=== PATIENT | male | born 1940 | race Caucasian/White ===

== ENCOUNTER 2021-09-14 13:38 | Inpatient (IN) ==
[2021-09-14] MEDS ORDERED: 0.9 % Sodium Chloride 1,000 ML ONE (14:16)
[2021-09-14] MEDS ORDERED: 0.9 % Sodium Chloride 1,000 ML IVC SCH (14:30)
[2021-09-14 14:53] LABS: Basophils % 0.3 %; Hematocrit 33.4 % (37.5-50.1); Hemoglobin 10.6 g/dL (12.9-16.9); Immature Granulocytes % 1.3 % (0-4); Lymphocytes # 0.3 K/mcL (0.6-4.6); Lymphocytes % 4.3 %; Mean Corpuscular HGB Conc 31.7 g/dL (31.6-35.5); Mean Corpuscular Hemoglobin 28.8 pg (28.0-33.3); Mean Corpuscular Volume 90.8 fL (83.0-100.0); Mean Platelet Volume 11.2 fL (9.4-12.4); Monocytes # 0.3 K/mcL (0.0-1.3); Monocytes % 4.3 %; Neutrophils # 6.4 K/mcL (1.6-8.9); Platelet Count 123 K/mcL (140-400); Red Blood Count 3.68 M/mcL (4.19-5.50); Red Cell Distribution Width 13.7 % (11.5-14.5); Segmented Neutrophils % 89.8 %; White Blood Count 7.2 K/mcL (4.3-11.1)
[2021-09-14 15:40] LABS: Troponin I 1.17 ng/mL (< 0.04)
[2021-09-14 15:44] LABS: Alanine Aminotransferase 24 Units/L (7-52); Albumin < 1.5 g/dL (3.5-5.7); Alkaline Phosphatase 32 Units/L (34-104); Aspartate Amino Transferase 42 Units/L (13-39); BUN/Creatinine Ratio 47 (6-26); Bilirubin,Total 0.3 mg/dL (0.3-1.0); Blood Urea Nitrogen 113 mg/dL (8-23); Calcium < 4.0 mg/dL (8.6-10.3); Carbon Dioxide 10 mEq/L (23-29); Chloride 132 mEq/L (98-107); Creatine Kinase 1411 Units/L (30-223); Glucose 207 mg/dL (70-105); Osmolality,Calculated 362 (280-300); Sodium 155 mEq/L (136-145); Total Protein 2.7 g/dL (6.4-8.9); eGFR For African Americans 32 (> 60); eGFR For Non-African Americans 26 (> 60)
[2021-09-14] MEDS ORDERED: Ondansetron 4 MG/2 ML VIAL IVP ONE (16:02)
[2021-09-14] MEDS ORDERED: Morphine Sulfate 2 MG/ML SYRINGE IVP ONE (16:02)
[2021-09-14] MEDS ORDERED: *HR* Heparin 5,000 UNIT/ML VIAL IVP PRN ×2 (16:04)
[2021-09-14] MEDS ORDERED: *HR* Heparin 5,000 UNIT/ML VIAL IVP ONE (16:04)
[2021-09-14 16:45] LABS: Amorphous Sediment,Urine Few per hpf (None-Few); Bilirubin,Urine Small (Negative); Blood,Urine Trace (Negative); Clarity,Urine Turbid (Clear); Color,Urine Yellow (Yellow); Glucose,Urine (UA) 70 mg/dL (Normal); Ketones,Urine Trace mg/dL (Negative); Leukocyte Esterase,Urine Negative (Negative); Mucus,Urine Few per lpf (None-Few); Nitrite,Urine Negative (Negative); Protein,Urine Trace mg/dL (Neg-Trace); Specific Gravity,Urine 1.022 (1.010-1.025); Urobilinogen,Urine Normal (Normal); WBC,Urine 0-3 per hpf (0-3)
[2021-09-14] MEDS: Heparin 25,000UNIT/250ML 1/2NS 25,000 UNIT/250 ML IV.SOLN IVC SCH (17:30)
[2021-09-14] MEDS ORDERED: Albumin 25% 25gram/100mL 25 GM/100 ML IV.SOLN IVC SCH (18:15)
[2021-09-14] MEDS ORDERED: Acetaminophen 325 MG TABLET PO PRN (19:30)
[2021-09-14] MEDS ORDERED: Naloxone 0.4 MG/ML INJ IVP PRN (19:30)
[2021-09-14] MEDS ORDERED: Ondansetron 4 MG/2 ML VIAL IVP PRN (19:30)
[2021-09-14] MEDS: Calcium Gluconate 1gm/50mL 1 GM/50 ML BAG IVPB SCH ×2 (19:57→20:53)
[2021-09-14] MEDS ORDERED: Perflutren Lipid Microsphere 1.3 ML in 0.9 % Sodium Chloride 8.7 ML IVP PRN (21:37)
[2021-09-14] MEDS ORDERED: Ipratropium/Albuterol Neb 3 ML IH PRN (22:00)
[2021-09-15] MEDS: 0.9 % Sodium Chloride 1,000 ML IVC SCH ×3 (00:47→21:58)
[2021-09-15] MEDS: Doxycycline 100 MG in 0.9 % Sodium Chloride Mini Bag 100 ML IVPB SCH ×2 (00:47→08:29)
[2021-09-15] MEDS ORDERED: Calcium Gluconate 1gm/50mL 1 GM/50 ML BAG IVPB ONE ×2 (00:49→05:48)
[2021-09-15 00:55] LABS: Adenovirus Not Detected (Not Detect); Coronavirus 229E Not Detected (Not Detect); Coronavirus HKU1 Not Detected (Not Detect); Coronavirus NL63 Not Detected (Not Detect); Coronavirus OC43 Not Detected (Not Detect)
[2021-09-15 00:56] LABS: SARS-CoV-2 DETECTED (Not Detect)
[2021-09-15 00:57] LABS: Bordetella Pertussis Not Detected (Not Detect); Chlamydophila pneumoniae Not Detected (Not Detect); Human Metapneumovirus Not Detected (Not Detect); Human Rhinovirus/Enterovirus Not Detected (Not Detect); Influenza A Subtype 2009 H1 Not Detected (Not Detect); Influenza B Not Detected (Not Detect); Mycoplasma pneumoniae Not Detected (Not Detect); Parainfluenza Virus 1 Not Detected (Not Detect); Parainfluenza Virus 2 Not Detected (Not Detect); Parainfluenza Virus 3 Not Detected (Not Detect); Parainfluenza Virus 4 Not Detected (Not Detect); Respiratory Syncytial Virus Not Detected (Not Detect)
[2021-09-15] MEDS: cefTRIAXone 1,000 MG in 0.9 % Sodium Chloride Mini Bag 100 ML IVPB SCH ×2 (01:40→08:29)
[2021-09-15 04:30] LABS: Heparin anti-factor XA UFH 0.61 IU/mL (0.30-0.70); Prothrombin Time 22.6 Seconds (9.4-12.1)
[2021-09-15 04:35] LABS: Alanine Aminotransferase 65 Units/L (7-52); Albumin 3.1 g/dL (3.5-5.7); Albumin/Globulin Ratio 0.8 (1.1-2.2); Alkaline Phosphatase 89 Units/L (34-104); Aspartate Amino Transferase 120 Units/L (13-39); Bilirubin,Direct 0.4 mg/dL (0.0-0.2); Bilirubin,Indirect 0.4 mg/dL (0.0-1.0); Bilirubin,Total 0.8 mg/dL (0.3-1.0); Blood Urea Nitrogen > 130 mg/dL (8-23); Calcium 8.7 mg/dL (8.6-10.3); Carbon Dioxide 17 mEq/L (23-29); Chloride 115 mEq/L (98-107); Chol/HDL Ratio 8.1 (0-4.9); Cholesterol 137 mg/dL (< 200); Creatine Kinase 3942 Units/L (30-223); Globulin 3.8 g/dL (2.4-3.5); Glucose 262 mg/dL (70-105); HDL Cholesterol 17 mg/dL (40-59); LDL Cholesterol,Calculated 56 mg/dL (< 100); Magnesium 3.9 mg/dL (1.6-2.6); Phosphorous 8.6 mg/dL (2.7-4.5); Sodium 155 mEq/L (136-145); Thyroid Stimulating Hormone 2.792 mcIU/mL (0.340-5.600); Total Protein 6.9 g/dL (6.4-8.9); Triglycerides 319 mg/dL (< 150); eGFR For African Americans 12 (> 60); eGFR For Non-African Americans 10 (> 60)
[2021-09-15 04:37] LABS: Vitamin D 25 Hydroxy 38 ng/mL (30-80)
[2021-09-15 04:39] LABS: Folate 18.8 ng/mL (3.0-16.0)
[2021-09-15 04:51] LABS: Vitamin B12 > 1500 pg/mL (250-1100)
[2021-09-15] MEDS ORDERED: 0.9 % Sodium Chloride 500 ML IVC PRN (04:54)
[2021-09-15] MEDS ORDERED: 0.9 % Sodium Chloride 500 ML ONE (04:57)
[2021-09-15 06:13] LABS: ABG Base Excess -11 mEq/L (-2 to 3); ABG HCO3 12 mEq/L (21-27); ABG Oxygen Saturation 96 % (95-98); ABG PCO2 21 mmHg (35-45); ABG PH 7.38 pH Units (7.32-7.45); ABG PO2 84 mmHg (85-104); ABG TCO2 13 mEq/L (20-26)
[2021-09-15 06:51] LABS: Basophils # 0.1 K/mcL (0.0-0.2); Basophils % 0.5 %; Hematocrit 50.1 % (37.5-50.1); Immature Granulocytes % 2.5 % (0-4); Lymphocytes % 2.1 %; Mean Corpuscular HGB Conc 31.9 g/dL (31.6-35.5); Mean Corpuscular Hemoglobin 28.5 pg (28.0-33.3); Mean Corpuscular Volume 89.3 fL (83.0-100.0); Mean Platelet Volume 11.6 fL (9.4-12.4); Monocytes # 0.7 K/mcL (0.0-1.3); Neutrophils # 14.9 K/mcL (1.6-8.9); Nucleated Red Blood Cells 1.2 /100 WBC (0); Platelet Count 195 K/mcL (140-400); Red Blood Count 5.61 M/mcL (4.19-5.50); Segmented Neutrophils % 90.9 %; White Blood Count 16.4 K/mcL (4.3-11.1)
[2021-09-15 06:55] LABS: Lymphocytes # 0.3 K/mcL (0.6-4.6)
[2021-09-15 07:17] LABS: Blood Urea Nitrogen > 130 mg/dL (8-23); Calcium 7.9 mg/dL (8.6-10.3); Carbon Dioxide 14 mEq/L (23-29); Chloride 119 mEq/L (98-107); Glucose 291 mg/dL (70-105); Sodium 155 mEq/L (136-145); Uric Acid 16.5 mg/dL (2.3-7.6); eGFR For African Americans 12 (> 60); eGFR For Non-African Americans 10 (> 60)
[2021-09-15 07:20] LABS: Platelet Estimate Normal (Normal)
[2021-09-15] MEDS ORDERED: 0.9 % Sodium Chloride 250 ML IVC PRN (07:48)
[2021-09-15] MEDS ORDERED: 0.9 % Sodium Chloride 1,000 ML PRIME SCH ×2 (08:00→22:00)
[2021-09-15] MEDS: Norepinephrine 4 MG/254 ML IV.SOLN IVC SCH ×3 (08:28→21:18)
[2021-09-15] MEDS: Sodium Bicarbonate 150 MEQ in D5% in Water 1,000 ML IVC SCH ×2 (08:30→21:59)
[2021-09-15 09:35] LABS: Blood Urea Nitrogen > 130 mg/dL (8-23); Calcium 7.8 mg/dL (8.6-10.3); Carbon Dioxide 18 mEq/L (23-29); Chloride 117 mEq/L (98-107); Glucose 297 mg/dL (70-105); Potassium 5.7 mEq/L (3.5-5.1); Sodium 157 mEq/L (136-145); Troponin I 0.08 ng/mL (< 0.04); eGFR For African Americans 11 (> 60); eGFR For Non-African Americans 9 (> 60)
[2021-09-15] MEDS ORDERED: *HR* Heparin 5,000 UNIT/ML VIAL ONE (10:23)
[2021-09-15 12:33] LABS: ABG Base Excess -5 mEq/L (-2 to 3); ABG HCO3 16 mEq/L (21-27); ABG Oxygen Saturation 97 % (95-98); ABG PCO2 22 mmHg (35-45); ABG PH 7.48 pH Units (7.32-7.45); ABG PO2 80 mmHg (85-104); ABG TCO2 17 mEq/L (20-26); Blood Gas Pressure Support 14 cm H2O
[2021-09-15] MEDS ORDERED: *HR* Midazolam HCl 5 MG/5 ML VIAL IVP ONE (15:09)
[2021-09-15] MEDS ORDERED: *HR* Etomidate 20 MG/10 ML AMPUL IVP ONE (15:09)
[2021-09-15] MEDS ORDERED: *HR* Rocuronium Bromide 50 MG/5 ML VIAL IVP ONE (15:09)
[2021-09-15] MEDS ORDERED: Artificial Tears SOLN 15 ML BOTTLE BOTH EYES PRN (16:06)
[2021-09-15] MEDS ORDERED: Pantoprazole 40 MG VIAL IVP SCH (16:15)
[2021-09-15 16:19] LABS: Blood Urea Nitrogen > 130 mg/dL (8-23); Calcium 7.4 mg/dL (8.6-10.3); Carbon Dioxide 19 mEq/L (23-29); Chloride 114 mEq/L (98-107); Glucose 389 mg/dL (70-105); Potassium 5.2 mEq/L (3.5-5.1); Sodium 155 mEq/L (136-145); eGFR For African Americans 12 (> 60); eGFR For Non-African Americans 10 (> 60)
[2021-09-15] MEDS: FentaNYL (PF) 1,000 MCG/100 ML IV.SOLN IVC SCH (16:30)
[2021-09-15] MEDS: Midazolam HCl 50 MG/100 ML IV.SOLN IVC SCH (16:30)
[2021-09-15 16:56] LABS: Hepatitis B Surface Antibody < 3.10 mIU/mL
[2021-09-15 17:07] LABS: Hepatitis B Surface Antigen Nonreactive (Nonreactive)
[2021-09-15 17:15] LABS: ABG Base Excess -4 mEq/L (-2 to 3); ABG HCO3 19 mEq/L (21-27); ABG Oxygen Saturation 93 % (95-98); ABG PCO2 29 mmHg (35-45); ABG PH 7.42 pH Units (7.32-7.45); ABG PO2 65 mmHg (85-104); ABG TCO2 20 mEq/L (20-26); Blood Gas Modality ASSIST CONTROL; Blood Gas VT 400 cc
[2021-09-15] MEDS: Pantoprazole 40 MG VIAL IVP SCH (18:26)
[2021-09-15 20:12] LABS: Basophils # 0.1 K/mcL (0.0-0.2); Basophils % 0.5 %; Eosinophils % 0.1 %; Hematocrit 45.4 % (37.5-50.1); Hemoglobin 15.1 g/dL (12.9-16.9); Immature Granulocytes % 2.1 % (0-4); Lymphocytes # 0.6 K/mcL (0.6-4.6); Lymphocytes % 2.7 %; Mean Corpuscular HGB Conc 33.3 g/dL (31.6-35.5); Mean Corpuscular Hemoglobin 29.6 pg (28.0-33.3); Monocytes # 0.5 K/mcL (0.0-1.3); Monocytes % 2.4 %; Nucleated Red Blood Cells 2.7 /100 WBC (0); Platelet Count 168 K/mcL (140-400); Red Cell Distribution Width 14.1 % (11.5-14.5); Segmented Neutrophils % 92.2 %; White Blood Count 20.6 K/mcL (4.3-11.1)
[2021-09-15 20:34] LABS: Blood Urea Nitrogen > 130 mg/dL (8-23); Calcium 7.2 mg/dL (8.6-10.3); Carbon Dioxide 20 mEq/L (23-29); Chloride 112 mEq/L (98-107); Glucose 413 mg/dL (70-105); Potassium 5.5 mEq/L (3.5-5.1); Sodium 154 mEq/L (136-145); eGFR For African Americans 12 (> 60); eGFR For Non-African Americans 10 (> 60)
[2021-09-15 20:47] LABS: Platelet Estimate Normal (Normal)
[2021-09-15 21:12] LABS: Basophils # 0.1 K/mcL (0.0-0.2); Basophils % 0.5 %; Hematocrit 41.5 % (37.5-50.1); Hemoglobin 13.9 g/dL (12.9-16.9); Immature Granulocytes % 1.6 % (0-4); Lymphocytes # 0.6 K/mcL (0.6-4.6); Mean Corpuscular HGB Conc 33.5 g/dL (31.6-35.5); Mean Corpuscular Volume 89.4 fL (83.0-100.0); Monocytes # 0.5 K/mcL (0.0-1.3); Monocytes % 2.4 %; Nucleated Red Blood Cells 3.4 /100 WBC (0); Platelet Count 158 K/mcL (140-400); Red Blood Count 4.64 M/mcL (4.19-5.50); Red Cell Distribution Width 14.2 % (11.5-14.5); Segmented Neutrophils % 92.5 %; White Blood Count 19.4 K/mcL (4.3-11.1)
[2021-09-15 21:31] LABS: Platelet Estimate Normal (Normal)
[2021-09-15] MEDS ORDERED: *HR* Heparin 5,000 UNIT/ML VIAL IVP PRN (21:54)
[2021-09-15 22:05] LABS: VBG Ionized Calcium 0.71 mmol/L (1.15-1.35)
[2021-09-15 22:27] LABS: Blood Urea Nitrogen > 130 mg/dL (8-23); Carbon Dioxide 22 mEq/L (23-29); Chloride 118 mEq/L (98-107); Glucose 456 mg/dL (70-105); Magnesium 2.3 mg/dL (1.6-2.6); Potassium 4.1 mEq/L (3.5-5.1); Sodium 152 mEq/L (136-145); eGFR For African Americans 17 (> 60); eGFR For Non-African Americans 14 (> 60)
[2021-09-15 22:39] LABS: Creatine Kinase 2687 Units/L (30-223)
[2021-09-16] MEDS: FentaNYL (PF) 1,000 MCG/100 ML IV.SOLN IVC SCH ×3 (00:03→19:40)
[2021-09-16] MEDS ORDERED: Albumin 25% 25gram/100mL 25 GM/100 ML IV.SOLN IVPB ONE (00:36)
[2021-09-16] MEDS ORDERED: D5% in Water 1,000 ML IVC PRN (00:50)
[2021-09-16] MEDS ORDERED: *HR* Dextrose 50 % in Water (Syg) 50 ML SYRINGE IVP PRN (00:50)
[2021-09-16] MEDS ORDERED: Dextrose Gel 15 GM/37.5 ML TUBE PO PRN ×2 (00:50)
[2021-09-16] MEDS: Heparin 25,000UNIT/250ML 1/2NS 25,000 UNIT/250 ML IV.SOLN IVC SCH ×2 (01:30→19:48)
[2021-09-16] MEDS: Dexmedetomidine HCl 400 MCG/100 ML MLS IVC SCH ×2 (01:30→13:23)
[2021-09-16] MEDS: Norepinephrine 4 MG/254 ML IV.SOLN IVC SCH ×5 (01:40→11:25)
[2021-09-16] MEDS: Artificial Tears SOLN 15 ML BOTTLE BOTH EYES SCH ×8 (01:41→23:11)
[2021-09-16] MEDS: 0.9 % Sodium Chloride 1,000 ML IVC SCH ×2 (01:43→05:30)
[2021-09-16] MEDS: Chlorhexidine Rinse 15 ML MOUTHWASH MM SCH ×3 (01:44→20:06)
[2021-09-16] MEDS ORDERED: Doxycycline 100 MG in 0.9 % Sodium Chloride Mini Bag 100 ML IVPB SCH (03:00)
[2021-09-16] MEDS ORDERED: 0.9 % Sodium Chloride 2,000 ML ONE (03:35)
[2021-09-16 03:43] LABS: Basophils # 0.1 K/mcL (0.0-0.2); Basophils % 0.4 %; Hematocrit 36.8 % (37.5-50.1); Immature Granulocytes % 1.1 % (0-4); Lymphocytes # 0.6 K/mcL (0.6-4.6); Lymphocytes % 3.5 %; Mean Corpuscular HGB Conc 33.4 g/dL (31.6-35.5); Mean Corpuscular Volume 89.8 fL (83.0-100.0); Mean Platelet Volume 11.7 fL (9.4-12.4); Monocytes # 0.3 K/mcL (0.0-1.3); Monocytes % 1.7 %; Neutrophils # 16.7 K/mcL (1.6-8.9); Nucleated Red Blood Cells 5.6 /100 WBC (0); Platelet Count 129 K/mcL (140-400); Red Cell Distribution Width 14.1 % (11.5-14.5); Segmented Neutrophils % 93.3 %; White Blood Count 17.9 K/mcL (4.3-11.1)
[2021-09-16 03:47] LABS: Hemoglobin 12.3 g/dL (12.9-16.9)
[2021-09-16 03:54] LABS: VBG Ionized Calcium 0.78 mmol/L (1.15-1.35)
[2021-09-16 04:01] LABS: Blood Urea Nitrogen > 130 mg/dL (8-23); Calcium 6.4 mg/dL (8.6-10.3); Carbon Dioxide 23 mEq/L (23-29); Chloride 113 mEq/L (98-107); Glucose 452 mg/dL (70-105); Magnesium 2.9 mg/dL (1.6-2.6); Phosphorous 6.6 mg/dL (2.7-4.5); Potassium 5.1 mEq/L (3.5-5.1); Sodium 152 mEq/L (136-145); Troponin I 0.08 ng/mL (< 0.04); eGFR For African Americans 12 (> 60); eGFR For Non-African Americans 10 (> 60)
[2021-09-16] MEDS: PrismaSATE BGK 4/2.5 5,000 ML CRRT SCH ×6 (05:20→20:30)
[2021-09-16 05:29] LABS: ABG Base Excess -1 mEq/L (-2 to 3); ABG HCO3 22 mEq/L (21-27); ABG Oxygen Saturation 94 % (95-98); ABG PCO2 32 mmHg (35-45); ABG PH 7.45 pH Units (7.32-7.45); ABG PO2 65 mmHg (85-104); ABG TCO2 23 mEq/L (20-26); Blood Gas Modality ASSIST CONTROL; Blood Gas VT 400 cc
[2021-09-16] MEDS ORDERED: Insulin LISPRO 300 UNITS/3 ML VIAL SUBQ SCH (06:00)
[2021-09-16] MEDS: Sodium Bicarbonate 150 MEQ in D5% in Water 1,000 ML IVC SCH (06:09)
[2021-09-16] MEDS: Phenylephrine 50 MG in 0.9 % Sodium Chloride 250 ML IVC SCH (06:10)
[2021-09-16] MEDS: Calcium Gluconate 1gm/50mL 1 GM/50 ML BAG IVPB PRN ×2 (06:19→19:40)
[2021-09-16] MEDS: Pantoprazole 40 MG VIAL IVP SCH ×2 (06:24→18:02)
[2021-09-16] MEDS: cefTRIAXone 1,000 MG in 0.9 % Sodium Chloride Mini Bag 100 ML IVPB SCH (07:47)
[2021-09-16] MEDS ORDERED: Aspirin Enteric Coated 81 MG Tablet PO SCH (09:00)
[2021-09-16 10:12] LABS: Creatine Kinase 3152 Units/L (30-223)
[2021-09-16] MEDS: Aspirin 81 MG TAB.CHEW PO SCH (10:35)
[2021-09-16] MEDS ORDERED: Calcium Chloride 2,000 MG in 0.9 % Sodium Chloride 100 ML IVPB ONE (11:30)
[2021-09-16] MEDS ORDERED: D10% in Water 500 ML IVC PRN (11:41)
[2021-09-16] MEDS: Insulin LISPRO 300 UNITS/3 ML VIAL SUBQ SCH ×3 (11:52→23:41)
[2021-09-16 11:54] LABS: Estimated Average Glucose 154 mg/dl
[2021-09-16] MEDS: Norepinephrine 8 MG/258 ML IV.SOLN IVC SCH ×3 (13:20→22:35)
[2021-09-16] MEDS: Midazolam HCl 50 MG/100 ML IV.SOLN IVC SCH (14:21)
[2021-09-16] MEDS: Piperacillin/Tazobactam 3.375 GM in 0.9 % Sodium Chloride Mini Bag 100 ML IVPB SCH ×2 (15:30→23:09)
[2021-09-16] MEDS ORDERED: Clinimix 5%-20% SOLUTION 2,000 ML with MVI, adult with vitamin K 10 ML, Sodium Acetat... IVC SCH (17:00)
[2021-09-16 17:29] LABS: VBG Ionized Calcium 1.08 mmol/L (1.15-1.35)
[2021-09-16 17:45] LABS: Calcium 7.8 mg/dL (8.6-10.3); Potassium 5.3 mEq/L (3.5-5.1); Troponin I 0.39 ng/mL (< 0.04)
[2021-09-16] MEDS ORDERED: Perflutren Lipid Microsphere 1.3 ML in 0.9 % Sodium Chloride 8.7 ML IVP PRN (18:25)
[2021-09-16] MEDS ORDERED: Insulin DETEMIR 100 UNIT/ML X5UNITS SUBQ SCH (21:00)
[2021-09-16 21:23] LABS: Calcium 7.8 mg/dL (8.6-10.3); Potassium 5.5 mEq/L (3.5-5.1)
[2021-09-16 22:55] LABS: Troponin I 0.22 ng/mL (< 0.04)
[2021-09-17 00:14] LABS: VBG Ionized Calcium 1.01 mmol/L (1.15-1.35)
[2021-09-17] MEDS: PrismaSATE BGK 4/2.5 5,000 ML CRRT SCH ×10 (01:30→21:06)
[2021-09-17] MEDS: Calcium Gluconate 1gm/50mL 1 GM/50 ML BAG IVPB PRN ×3 (02:16→11:57)
[2021-09-17] MEDS: Artificial Tears SOLN 15 ML BOTTLE BOTH EYES SCH ×6 (03:54→23:16)
[2021-09-17] MEDS: Phenylephrine 50 MG in 0.9 % Sodium Chloride 250 ML IVC SCH (03:54)
[2021-09-17] MEDS: FentaNYL (PF) 1,000 MCG/100 ML IV.SOLN IVC SCH ×3 (04:00→23:06)
[2021-09-17] MEDS: Norepinephrine 8 MG/258 ML IV.SOLN IVC SCH ×3 (04:15→20:07)
[2021-09-17 04:32] LABS: Magnesium 2.4 mg/dL (1.6-2.6); Phosphorous 3.5 mg/dL (2.7-4.5)
[2021-09-17 04:33] LABS: Calcium 7.7 mg/dL (8.6-10.3); Potassium 5.4 mEq/L (3.5-5.1)
[2021-09-17 04:34] LABS: Hematocrit 37.8 % (37.5-50.1); Hemoglobin 12.2 g/dL (12.9-16.9); Immature Platelets 11.5 % (1.1-6.1); Mean Corpuscular HGB Conc 32.3 g/dL (31.6-35.5); Mean Corpuscular Hemoglobin 29.5 pg (28.0-33.3); Mean Corpuscular Volume 91.3 fL (83.0-100.0); Mean Platelet Volume 12.6 fL (9.4-12.4); Nucleated Red Blood Cells 2.5 /100 WBC (0); Red Blood Count 4.14 M/mcL (4.19-5.50); Red Cell Distribution Width 14.5 % (11.5-14.5); White Blood Count 23.3 K/mcL (4.3-11.1)
[2021-09-17 04:58] LABS: ABG Base Excess 0 mEq/L (-2 to 3); ABG HCO3 24 mEq/L (21-27); ABG Oxygen Saturation 100 % (95-98); ABG PCO2 36 mmHg (35-45); ABG PH 7.42 pH Units (7.32-7.45); ABG PO2 177 mmHg (85-104); ABG TCO2 25 mEq/L (20-26); Blood Gas VT 400 cc
[2021-09-17] MEDS: Pantoprazole 40 MG VIAL IVP SCH ×2 (05:48→16:26)
[2021-09-17 05:50] LABS: VBG Ionized Calcium 1.04 mmol/L (1.15-1.35)
[2021-09-17] MEDS: Insulin LISPRO 300 UNITS/3 ML VIAL SUBQ SCH ×5 (05:52→23:05)
[2021-09-17 06:28] LABS: Platelet Count 97 K/mcL (140-400)
[2021-09-17 06:31] LABS: Lymphocytes # 1.6 K/mcL (0.6-4.6); Monocytes # 0.9 K/mcL (0.0-1.3); Neutrophils # 20.7 K/mcL (1.6-8.9)
[2021-09-17 06:32] LABS: Platelet Estimate Decreased (Normal); Reactive Lymphocytes Present (Not Present)
[2021-09-17] MEDS: Piperacillin/Tazobactam 3.375 GM in 0.9 % Sodium Chloride Mini Bag 100 ML IVPB SCH ×3 (08:24→23:05)
[2021-09-17] MEDS: Chlorhexidine Rinse 15 ML MOUTHWASH MM SCH ×2 (08:24→19:34)
[2021-09-17] MEDS: Aspirin 81 MG TAB.CHEW PO SCH (08:24)
[2021-09-17] MEDS: Insulin DETEMIR 100 UNIT/ML X5UNITS SUBQ SCH ×2 (10:54→19:34)
[2021-09-17 11:38] LABS: VBG Ionized Calcium 1.05 mmol/L (1.15-1.35)
[2021-09-17] MEDS: Heparin 25,000UNIT/250ML 1/2NS 25,000 UNIT/250 ML IV.SOLN IVC SCH (13:00)
[2021-09-17] MEDS ORDERED: Vancomycin 1,500 MG/265 ML IV.SOLN IVPB ONE (13:45)
[2021-09-17] MEDS ORDERED: Clinimix 5%-20% SOLUTION 2,000 ML with MVI, adult with vitamin K 10 ML, Sodium Acetat... IVC SCH (17:00)
[2021-09-17] MEDS: Dexmedetomidine HCl 400 MCG/100 ML MLS IVC SCH (19:11)
[2021-09-17] MEDS: Midazolam HCl 50 MG/100 ML IV.SOLN IVC SCH (19:11)
[2021-09-18] MEDS: Phenylephrine 50 MG in 0.9 % Sodium Chloride 250 ML IVC SCH (01:05)
[2021-09-18] MEDS: Norepinephrine 8 MG/258 ML IV.SOLN IVC SCH (02:16)
[2021-09-18] MEDS: Artificial Tears SOLN 15 ML BOTTLE BOTH EYES SCH ×6 (03:13→23:09)
[2021-09-18 03:25] LABS: Hemoglobin 10.6 g/dL (12.9-16.9); Mean Corpuscular HGB Conc 31.2 g/dL (31.6-35.5); Mean Corpuscular Hemoglobin 28.7 pg (28.0-33.3); Mean Corpuscular Volume 92.1 fL (83.0-100.0); Mean Platelet Volume 12.5 fL (9.4-12.4); Nucleated Red Blood Cells 2.8 /100 WBC (0); Red Blood Count 3.69 M/mcL (4.19-5.50); Red Cell Distribution Width 14.4 % (11.5-14.5); White Blood Count 26.7 K/mcL (4.3-11.1)
[2021-09-18] MEDS: Insulin LISPRO 300 UNITS/3 ML VIAL SUBQ SCH ×6 (03:28→23:05)
[2021-09-18 03:29] LABS: Calcium 7.1 mg/dL (8.6-10.3); Magnesium 2.3 mg/dL (1.6-2.6); Phosphorous 2.3 mg/dL (2.7-4.5); Potassium 5.3 mEq/L (3.5-5.1)
[2021-09-18 03:43] LABS: Heparin anti-factor XA UFH 0.41 IU/mL (0.30-0.70)
[2021-09-18 04:02] LABS: Platelet Count 80 K/mcL (140-400)
[2021-09-18] MEDS: Pantoprazole 40 MG VIAL IVP SCH ×2 (05:05→16:39)
[2021-09-18] MEDS: PrismaSATE BGK 4/2.5 5,000 ML CRRT SCH ×8 (05:08→19:45)
[2021-09-18 05:27] LABS: ABG Base Excess -1 mEq/L (-2 to 3); ABG HCO3 24 mEq/L (21-27); ABG Oxygen Saturation 99 % (95-98); ABG PCO2 39 mmHg (35-45); ABG PO2 159 mmHg (85-104); ABG TCO2 25 mEq/L (20-26); Blood Gas Modality ASSIST CONTROL; Blood Gas VT 400 cc
[2021-09-18] MEDS: Piperacillin/Tazobactam 3.375 GM in 0.9 % Sodium Chloride Mini Bag 100 ML IVPB SCH ×3 (07:32→23:06)
[2021-09-18] MEDS: Chlorhexidine Rinse 15 ML MOUTHWASH MM SCH ×2 (07:32→19:18)
[2021-09-18] MEDS: Aspirin 81 MG TAB.CHEW PO SCH (07:33)
[2021-09-18 08:21] LABS: Lymphocytes # 1.3 K/mcL (0.6-4.6); Monocytes # 1.1 K/mcL (0.0-1.3); Neutrophils # 23.8 K/mcL (1.6-8.9); Platelet Estimate Decreased (Normal); Toxic Granulation Present (Not Present)
[2021-09-18] MEDS: Insulin DETEMIR 100 UNIT/ML X5UNITS SUBQ SCH ×2 (08:21→20:13)
[2021-09-18] MEDS: FentaNYL (PF) 1,000 MCG/100 ML IV.SOLN IVC SCH ×2 (09:09→23:05)
[2021-09-18] MEDS: Norepinephrine 8 MG in 0.9 % Sodium Chloride 250 ML IVC SCH (14:15)
[2021-09-18] MEDS ORDERED: Clinimix 5%-20% SOLUTION 2,000 ML with MVI, adult with vitamin K 10 ML, Sodium Acetat... IVC SCH (17:00)
[2021-09-18] MEDS: Dexmedetomidine HCl 400 MCG/100 ML MLS IVC SCH (17:12)
[2021-09-18 18:29] LABS: VBG Ionized Calcium 1.03 mmol/L (1.15-1.35)
[2021-09-18] MEDS: Calcium Gluconate 1gm/50mL 1 GM/50 ML BAG IVPB PRN (18:34)
[2021-09-18] MEDS: Midazolam HCl 50 MG/100 ML IV.SOLN IVC SCH (18:46)
[2021-09-18 18:51] LABS: Albumin 1.6 g/dL (3.5-5.7); Albumin/Globulin Ratio 0.8 (1.1-2.2); Bilirubin,Total 0.8 mg/dL (0.3-1.0); Calcium 5.5 mg/dL (8.6-10.3); Globulin 1.9 g/dL (2.4-3.5); Magnesium 1.9 mg/dL (1.6-2.6); Phosphorous 1.7 mg/dL (2.7-4.5); Potassium 4.1 mEq/L (3.5-5.1); Total Protein 3.5 g/dL (6.4-8.9)
[2021-09-18] MEDS: Heparin 25,000UNIT/250ML 1/2NS 25,000 UNIT/250 ML IV.SOLN IVC SCH (19:15)
[2021-09-19] MEDS: Phenylephrine 50 MG in 0.9 % Sodium Chloride 250 ML IVC SCH (00:25)
[2021-09-19] MEDS: Norepinephrine 8 MG in 0.9 % Sodium Chloride 250 ML IVC SCH ×2 (00:25→13:30)
[2021-09-19] MEDS: PrismaSATE BGK 4/2.5 5,000 ML CRRT SCH ×10 (01:06→21:07)
[2021-09-19] MEDS: Artificial Tears SOLN 15 ML BOTTLE BOTH EYES SCH ×6 (03:14→23:09)
[2021-09-19 03:16] LABS: Nucleated Red Blood Cells 1.7 /100 WBC (0); Red Cell Distribution Width 14.4 % (11.5-14.5)
[2021-09-19 03:18] LABS: Hematocrit 27.4 % (37.5-50.1); Immature Platelets 14.7 % (1.1-6.1); Mean Corpuscular HGB Conc 32.8 g/dL (31.6-35.5); Mean Corpuscular Hemoglobin 30.2 pg (28.0-33.3); Mean Corpuscular Volume 91.9 fL (83.0-100.0); Mean Platelet Volume 12.3 fL (9.4-12.4); Red Blood Count 2.98 M/mcL (4.19-5.50); White Blood Count 25.3 K/mcL (4.3-11.1)
[2021-09-19] MEDS: Insulin LISPRO 300 UNITS/3 ML VIAL SUBQ SCH ×6 (03:20→23:09)
[2021-09-19 03:22] LABS: Platelet Count 84 K/mcL (140-400)
[2021-09-19 03:25] LABS: VBG Ionized Calcium 1.02 mmol/L (1.15-1.35)
[2021-09-19 03:27] LABS: Magnesium 2.3 mg/dL (1.6-2.6); Phosphorous 2.1 mg/dL (2.7-4.5)
[2021-09-19 03:29] LABS: Heparin anti-factor XA UFH 0.24 IU/mL (0.30-0.70)
[2021-09-19] MEDS: Calcium Gluconate 1gm/50mL 1 GM/50 ML BAG IVPB PRN (03:29)
[2021-09-19 03:34] LABS: Albumin/Globulin Ratio 0.8 (1.1-2.2); Bilirubin,Total 0.9 mg/dL (0.3-1.0); Calcium 6.9 mg/dL (8.6-10.3); Globulin 2.4 g/dL (2.4-3.5); Magnesium 2.3 mg/dL (1.6-2.6); Phosphorous 2.1 mg/dL (2.7-4.5); Potassium 4.8 mEq/L (3.5-5.1); Total Protein 4.4 g/dL (6.4-8.9)
[2021-09-19 04:47] LABS: ABG Base Excess -1 mEq/L (-2 to 3); ABG HCO3 24 mEq/L (21-27); ABG Oxygen Saturation 98 % (95-98); ABG PCO2 36 mmHg (35-45); ABG PH 7.43 pH Units (7.32-7.45); ABG PO2 106 mmHg (85-104); ABG TCO2 25 mEq/L (20-26); Blood Gas Modality ASSIST CONTROL; Blood Gas VT 400 cc
[2021-09-19] MEDS: Pantoprazole 40 MG VIAL IVP SCH ×2 (05:13→17:47)
[2021-09-19 06:47] LABS: Monocytes # 0.5 K/mcL (0.0-1.3); Neutrophils # 22.8 K/mcL (1.6-8.9); Platelet Estimate Marked Decrease (Normal); Reactive Lymphocytes Present (Not Present); Toxic Granulation Present (Not Present)
[2021-09-19] MEDS: Chlorhexidine Rinse 15 ML MOUTHWASH MM SCH ×2 (07:50→19:18)
[2021-09-19] MEDS: Aspirin 81 MG TAB.CHEW PO SCH (07:51)
[2021-09-19] MEDS: Piperacillin/Tazobactam 3.375 GM in 0.9 % Sodium Chloride Mini Bag 100 ML IVPB SCH ×3 (07:51→23:12)
[2021-09-19] MEDS ORDERED: Insulin DETEMIR 100 UNIT/ML X5UNITS SUBQ ONE (11:47)
[2021-09-19] MEDS: FentaNYL (PF) 1,000 MCG/100 ML IV.SOLN IVC SCH ×2 (12:55→21:06)
[2021-09-19] MEDS ORDERED: Clinimix 5%-20% SOLUTION 2,000 ML with MVI, adult with vitamin K 10 ML, Sodium Acetat... IVC SCH (17:00)
[2021-09-19] MEDS: Dexmedetomidine HCl 400 MCG/100 ML MLS IVC SCH (17:52)
[2021-09-19] MEDS ORDERED: Vancomycin 1,250 MG/262.5 ML IV.SOLN IVPB ONE (18:07)
[2021-09-19 18:22] LABS: VBG Ionized Calcium 1.02 mmol/L (1.15-1.35)
[2021-09-19] MEDS: Midazolam HCl 50 MG/100 ML IV.SOLN IVC SCH (18:51)
[2021-09-19] MEDS: Heparin 25,000UNIT/250ML 1/2NS 25,000 UNIT/250 ML IV.SOLN IVC SCH (19:03)
[2021-09-19] MEDS: Insulin DETEMIR 100 UNIT/ML X5UNITS SUBQ SCH (20:06)
[2021-09-20] MEDS: Norepinephrine 8 MG in 0.9 % Sodium Chloride 250 ML IVC SCH (01:05)
[2021-09-20] MEDS: Heparin 25,000UNIT/250ML 1/2NS 25,000 UNIT/250 ML IV.SOLN IVC SCH (01:05)
[2021-09-20] MEDS: Phenylephrine 50 MG in 0.9 % Sodium Chloride 250 ML IVC SCH (01:07)
[2021-09-20] MEDS: PrismaSATE BGK 4/2.5 5,000 ML CRRT SCH ×2 (01:08)
[2021-09-20] MEDS: Insulin LISPRO 300 UNITS/3 ML VIAL SUBQ SCH ×2 (03:13→08:56)
[2021-09-20] MEDS: Artificial Tears SOLN 15 ML BOTTLE BOTH EYES SCH ×2 (03:13→08:56)
[2021-09-20 03:30] LABS: Hematocrit 27.3 % (37.5-50.1); Hemoglobin 8.5 g/dL (12.9-16.9); Immature Granulocytes % 4.8 % (0-4); Mean Corpuscular HGB Conc 31.1 g/dL (31.6-35.5)
[2021-09-20 03:32] LABS: Basophils # 0.1 K/mcL (0.0-0.2); Basophils % 0.3 %; Immature Platelets 20.7 % (1.1-6.1); Lymphocytes # 0.7 K/mcL (0.6-4.6); Lymphocytes % 2.8 %; Mean Corpuscular Hemoglobin 28.9 pg (28.0-33.3); Mean Corpuscular Volume 92.9 fL (83.0-100.0); Mean Platelet Volume 13.7 fL (9.4-12.4); Monocytes # 1.1 K/mcL (0.0-1.3); Monocytes % 4.3 %; Neutrophils # 21.4 K/mcL (1.6-8.9); Nucleated Red Blood Cells 6.1 /100 WBC (0); Platelet Count 94 K/mcL (140-400); Red Blood Count 2.94 M/mcL (4.19-5.50); Red Cell Distribution Width 14.5 % (11.5-14.5); Segmented Neutrophils % 87.8 %; White Blood Count 24.4 K/mcL (4.3-11.1)
[2021-09-20 03:50] LABS: Albumin 2.2 g/dL (3.5-5.7); Albumin/Globulin Ratio 0.9 (1.1-2.2); Bilirubin,Total 0.9 mg/dL (0.3-1.0); Calcium 6.9 mg/dL (8.6-10.3); Globulin 2.4 g/dL (2.4-3.5); Magnesium 2.3 mg/dL (1.6-2.6); Phosphorous 2.5 mg/dL (2.7-4.5); Potassium 4.8 mEq/L (3.5-5.1); Total Protein 4.6 g/dL (6.4-8.9)
[2021-09-20 04:40] LABS: ABG Base Excess -5 mEq/L (-2 to 3); ABG HCO3 19 mEq/L (21-27); ABG Oxygen Saturation 91 % (95-98); ABG PCO2 33 mmHg (35-45); ABG PH 7.38 pH Units (7.32-7.45); ABG PO2 62 mmHg (85-104); ABG TCO2 20 mEq/L (20-26); Blood Gas VT 400 cc
[2021-09-20] MEDS: Pantoprazole 40 MG VIAL IVP SCH (05:07)
[2021-09-20 07:33] VITALS: O2SAT 94
[2021-09-20 07:58] VITALS: TEMP 98.3
[2021-09-20 08:33] VITALS: PULSE 110
[2021-09-20 08:35] VITALS: BP 86/73
[2021-09-20] MEDS: Piperacillin/Tazobactam 3.375 GM in 0.9 % Sodium Chloride Mini Bag 100 ML IVPB SCH (08:57)
[2021-09-20] MEDS: Chlorhexidine Rinse 15 ML MOUTHWASH MM SCH (08:58)
[2021-09-20] MEDS: Aspirin 81 MG TAB.CHEW PO SCH (08:58)
[2021-09-20] MEDS: Insulin DETEMIR 100 UNIT/ML X5UNITS SUBQ SCH (08:59)
== END 2021-09-20 09:02 | disposition expired | DRG 207 ==
LOC: EMEROOARM 13:38 → 2NNU 21:01 → ICNU 09-16 01:01
PROVIDERS: ADMIT Internal Medicine; ATTEND Internal Medicine